=== PATIENT | female | born 1990 | race Two or more races ===

== ENCOUNTER 2021-05-06 21:25 | Emergency (ER) | payer MEDICAID, OTHER ==
[~2021-05-06] VITALS: Ht 170.2 cm; Wt 79.8 kg
--- NOTE | 2021-05-06 21:57 | NUR ---
PATIENT BIBSELF C/O RECURRENT LUQ ABD PAIN RAD TO THE BACK WITH + N/V. PATIENT IS A/O X 4, RR EVEN AND UNLABORED, NO SOB NOTED. PATIENT TO ER BED 03. PATIENT IN HOSPITAL GOWN, CONNECTED TO MONITORS.
[2021-05-06] MEDS ORDERED: KETOROLAC TROMETHAMINE INJ 30 MG/ML VIAL ONE (22:20)
--- NOTE | 2021-05-06 22:27 | NUR ---
WAIVER SIGNED BY PATIENT.
[2021-05-06] MEDS ORDERED: KETOROLAC TROMETHAMINE INJ 30 MG/ML VIAL IM ONE (22:30)
[2021-05-06 22:35] LABS: BASOPHILS # (AUTO) 0.1 K/uL (0.0-0.2); EOSINOPHILS % (AUTO) 1.1 % (0.0-6.0); HEMATOCRIT 36 % (33-45); HEMOGLOBIN 12.1 g/dL (11.5-14.8); LYMPHOCYTES % (AUTO) 20.1 % (20.0-44.0); MEAN CORPUSCULAR HGB CONC 34 g/dl (31.0-36.0); MEAN CORPUSCULAR VOLUME 87 fL (82-100); MONOCYTES # (AUTO) 0.4 K/uL (0.1-1.30); MONOCYTES % (AUTO) 7.6 % (2.0-12.0); NEUTROPHILS # (AUTO) 3.5 K/uL (1.8-8.9); NEUTROPHILS % (AUTO) 70.2 % (43.0-81.0); PLATELET COUNT (AUTO) 359 K/uL (150-450); RED BLOOD CELL COUNT(AUTO) 4.13 MIL/uL (4.0-5.2)
[2021-05-06 22:35] LABS: BILIRUBIN,URINE LARGE (NEGATIVE); LEUKOCYTE ESTERASE ,URINE TRACE (NEGATIVE); NITRITE, URINE POSITIVE (NEGATIVE); PH,URINE 5.5 (5.0-8.0); PROTEIN,URINE TRACE mg/dl (NEGATIVE); UGLUCOSE NEGATIVE (NEGATIVE)
[2021-05-06 22:43] LABS: COLOR,URINE DARK YELLOW (YELLOW)
[2021-05-06 22:44] LABS: CALCIUM, SERUM 8.8 mg/dL (8.5-10.1); CREATININE 0.6 mg/dL (0.6-1.3); POTASSIUM 3.3 mmol/L (3.5-5.1)
[2021-05-07] MEDS ORDERED: ONDA4TAB11 PO (01:24)
[2021-05-07] MEDS ORDERED: IBUP-1957 PO (01:24)
--- NOTE | 2021-05-07 01:37 | NUR ---
Patient discharged to home in stable condition. RX Written and verbal after care instructions given. Patient verbalizes understanding of instruction. PT ambulatory with a steady gait
[2021-05-07 01:39] VITALS: BP 145/91
[2021-05-07 08:49] LABS: CALCIUM OXALATE CRYSTALS,UR Few /HPF (None Seen); RBC,URINE 0-2 /HPF (0-2)
[2021-05-07 08:50] LABS: MUCUS,URINE Moderate /LPF (None Seen); URINE AMORPHOUS URATE Few /HPF (None Seen)
[2021-05-07 08:51] LABS: BACTERIA,URINE 1+ /HPF (None Seen)
== END 2021-05-07 01:39 | disposition home or self-care (01) ==
LOC: ER 21:34
DX: K80.50 Calculus of bile duct without cholangitis or cholecystitis without obstruction (principal); Z98.891 History of uterine scar from previous surgery; Z79.1 Long term (current) use of non-steroidal anti-inflammatories (NSAID); Z79.899 Other long term (current) drug therapy
CPT/HCPCS: 36415; 74176; 76705; 80048; 81001; 84703; 85025; 87086; 96372; 99284; J1885

== ENCOUNTER 2021-06-28 01:37 | Emergency (ER) | payer MEDICAID ==
[~2021-06-28] VITALS: Ht 172.7 cm; Wt 61.7 kg
[~2021-06-28 01:37] MED LIST: IBUP-1957 PO; ONDA4TAB11 PO
[2021-06-28 02:16] VITALS: BP 110/96
[2021-06-28] MEDS ORDERED: ONDANSETRON 4 MG TAB.RAPDIS ONE (02:29)
[2021-06-28] MEDS ORDERED: MORPHINE SULFATE INJ 4 MG/ML DISP.SYRIN ONE (02:29)
[2021-06-28] MEDS ORDERED: MORPHINE SULFATE INJ 2 MG/ML DISP.SYRIN IM ONE (02:30)
[2021-06-28] MEDS ORDERED: ONDANSETRON 4 MG TAB.RAPDIS SL ONE (02:30)
== END 2021-06-28 02:37 | disposition home or self-care (01) ==
LOC: ER 01:51
DX: K80.50 Calculus of bile duct without cholangitis or cholecystitis without obstruction (principal); Z79.899 Other long term (current) drug therapy
CPT/HCPCS: 96372; 99283; J2270; Q0162

== ENCOUNTER 2021-06-30 22:25 | Emergency (ER) | payer MEDICAID ==
[~2021-06-30] VITALS: Ht 167.6 cm; Wt 69.9 kg
--- NOTE | 2021-06-30 22:55 | NUR ---
BIBS FOR C/O R SIDED ABD PAIN RADIATING TO THE BACK. SCHEDULED FOR GALLBLADDER SX ON 07/04. PATIENT ALERT AND ORIENTED X3. AMBULATORY WITH NON LABORED BREATHING IN BED 09 ON MONITOR AWAITING MD ESPAÑA
[2021-06-30] MEDS ORDERED: MORPHINE SULFATE INJ 2 MG/ML DISP.SYRIN ONE (23:04)
--- NOTE | 2021-06-30 23:07 | NUR ---
BLOOD COLLECTED AND SENT TO LAB
[2021-06-30 23:19] LABS: BASOPHILS # (AUTO) 0.1 K/uL (0.0-0.2); BASOPHILS % (AUTO) 1.3 % (0.0-2.0); EOSINOPHILS % (AUTO) 1.1 % (0.0-6.0); HEMATOCRIT 39 % (33-45); HEMOGLOBIN 13.3 g/dL (11.5-14.8); LYMPHOCYTES # (AUTO) 1.6 K/uL (0.8-4.8); LYMPHOCYTES % (AUTO) 25.7 % (20.0-44.0); MEAN CORPUSCULAR HGB CONC 34 g/dl (31.0-36.0); MEAN CORPUSCULAR VOLUME 87 fL (82-100); MONOCYTES # (AUTO) 0.4 K/uL (0.1-1.30); MONOCYTES % (AUTO) 6.4 % (2.0-12.0); NEUTROPHILS # (AUTO) 4.2 K/uL (1.8-8.9); NEUTROPHILS % (AUTO) 65.5 % (43.0-81.0); PLATELET COUNT (AUTO) 431 K/uL (150-450); WHITE BLOOD COUNT (AUTO) 6.4 K/uL (4.3-11.0)
[2021-06-30] MEDS ORDERED: MORPHINE SULFATE INJ 2 MG/ML DISP.SYRIN IV ONE (23:30)
[2021-06-30 23:35] LABS: ALBUMIN 4.3 g/dL (3.4-5.0); BILIRUBIN,DIRECT 2.1 mg/dL (0.0-0.2); BILIRUBIN,TOTAL 2.8 mg/dL (0.2-1.0); CALCIUM, SERUM 9.6 mg/dL (8.5-10.1); CREATININE 0.6 mg/dL (0.6-1.3); POTASSIUM 3.6 mmol/L (3.5-5.1); TOTAL PROTEIN, SERUM 8.5 g/dL (6.4-8.2)
--- NOTE | 2021-06-30 23:53 | NUR ---
URINE SAMPLE COLLECTED AND SENT TO LAB
[2021-07-01 00:54] LABS: BILIRUBIN,URINE MODERATE (NEGATIVE); COLOR,URINE DARK YELLOW (YELLOW); LEUKOCYTE ESTERASE ,URINE TRACE (NEGATIVE); NITRITE, URINE NEGATIVE (NEGATIVE); PH,URINE 6.5 (5.0-8.0); PROTEIN,URINE TRACE mg/dl (NEGATIVE); UGLUCOSE NEGATIVE (NEGATIVE)
--- NOTE | 2021-07-01 01:08 | NUR ---
Patient does not wish to proceed with medical care recommended by Dr. Castellanos. Patient given information related to possible complications, up to and including , which could occur as a result of leaving the hospital at this time. Patient verbalizes understanding of risks involved due to leaving against medical advice. Patient has signed AMA form.
[2021-07-01 01:09] VITALS: BP 133/90
[2021-07-01 08:20] LABS: RBC,URINE 0-2 /HPF (0-2)
[2021-07-01 08:21] LABS: CALCIUM OXALATE CRYSTALS,UR Few /HPF (None Seen)
[2021-07-01 08:22] LABS: BACTERIA,URINE Moderate /HPF (None Seen)
== END 2021-07-01 01:14 | disposition left against medical advice (07) ==
LOC: ER 22:27
DX: K80.51 Calculus of bile duct without cholangitis or cholecystitis with obstruction (principal); R10.11 Right upper quadrant pain; Z87.442 Personal history of urinary calculi; Z79.899 Other long term (current) drug therapy
CPT/HCPCS: 36415; 76705; 80048; 80076; 81001; 83690; 84703; 85025; 87086; 96374; 99284; J2270